=== PATIENT | male | born 1945 | race Caucasian/White ===

== ENCOUNTER → 2018-11-24 06:21 | Outpatient (CLI) | payer MEDICARE, SELFPAY ==
--- NOTE | 2018-11-24 06:33 | ECHOCS_ITS ---
Reason For Study: Abn EKG Procedure This was a 2D Doppler, Color Flow transthoracic echocardiogram. The study was technically difficult. Contrast injection was performed. Exam performed in department. Left Ventricle Normal LV size. Left ventricular systolic function is normal. The estimated ejection fraction is 65 %. Stage 1 diastolic dysfunction. No regional wall motion abnormalities noted. Right Ventricle Normal RV size. Normal systolic function. Atria Normal left atrium. Normal right atrium. Mitral Valve Normal mitral valve. Tricuspid Valve Normal tricuspid valve. Aortic Valve Trisinus/trileaflet aortic valve. Mild focal aortic valve calcification. Pulmonic Valve Normal pulmonic valve. Great Vessels Normal aortic root. The pulmonary artery is normal size. Normal inferior vena cava. Pericardium/Pleural No pericardial effusion. Medication Definity0.2ml given slow IV push to enhance endocardial definition. MMode/2D Measurements & Calculations LVIDd: 5.0 cm IVSd: 0.86 cm Ao root diam: 3.7 cm LVIDs: 2.9 cm LVPWd: 1.0 cm FS: 42.9 % LAV(MOD-bp): 36.5 ml LVAd ap4: 26.9 cm2 SV(MOD-sp4): 61.4 ml LAV(MOD-bp) Indexed: 14.7 ml/m2 EDV(MOD-sp4): 75.5 ml LAV(MOD-sp2): 34.0 ml EDV(sp4-el): 79.7 ml LAV(MOD-sp4): 37.7 ml LVAs ap4: 10.5 cm2 ESV(MOD-sp4): 14.1 ml ESV(sp4-el): 14.8 ml EF(MOD-sp4): 81.3 % EF(sp4-el): 81.4 % SV(sp4-el): 64.9 ml LA A4 area: 14.7 cm2 LA dimension(2D): 4.6 cm RA A4 area: 5.4 cm2 Doppler Measurements & Calculations MV E max duncan: 80.2 cm/sec Lat Peak E' Duncan: 9.0 cm/sec Med Peak E' Duncan: 7.4 cm/sec MV A max duncan: 128.7 cm/sec E/E' lat: 8.9 E/E' med: 10.9 MV E/A: 0.62 Ao V2 max: 165.6 cm/sec LV V1 max: 121.6 cm/sec PA V2 max: 105.9 cm/sec Ao max P.0 mmHg LV V1 max P.9 mmHg Ao V2 mean: 100.1 cm/sec Ao mean P.7 mmHg Ao V2 VTI: 26.1 cm Interpretation Summary Normal LV size. Left ventricular systolic function is normal. The estimated ejection fraction is 65 %. Stage 1 diastolic dysfunction. Contrast injection was performed. Ordering Physician: REGGIE Downing Referring Physician: REGGIE Downing Performed By: Florence Nagel RDCS, RVT
--- NOTE | 2018-11-24 11:46 | STRESSREP ---
Stress Test Report Pharmacologic myocardial perfusion stress test. 73-year-old man with a history of abnormal EKG. Stress protocol: Resting EKG demonstrates normal sinus rhythm with a rate of 102 bpm resting blood pressure is 170/[address] depression noted in lead I and aVL noted. 0.4 mg of regadenoson was infused per usual protocol followed by rapid intravenous saline flush injection continuous EKG monitoring was performed. The maximum heart rate attained was 122 bpm which was 81% of maximum predicted heart rate the maximum workload was 1 metabolic equivalent. At rest there were no ST or T wave changes noted suggest abnormal flow reserve at peak infusion nonspecific ST-T wave changes were noted T wave inversions in 1 and aVL persisted. The resting blood pressure was 170/94 mmHg with a final blood pressure 160/84 mmHg. Myocardial perfusion protocol. 14.9 mCi of technetium 99m sestamibi was injected at rest. 0.4 mg of regadenoson was infused per usual protocol peak infusion 44.9 mCi of technetium 99m sestamibi was injected stress images were obtained stress and rest images were reconstructed and compared in the short axis vertical long horizontal long axis. Gated images were also obtained per Perfusion SPECT analysis: Review of the stress images demonstrate mildly reduced perfusion in the mid anterior wall as well as the mid lateral wall. The resting images demonstrate improvement suggesting mid anterior and lateral ischemia. No previous infarct is noted. Gated SPECT analysis: The gated ejection fraction is noted to be 46% with segmental wall motion abnormalities present. Conclusion: Abnormal myocardial perfusion stress test with evidence of anterolateral ischemia noted.
== END ==
PROVIDERS: Family Provider Nurse Practitioner Family; PCP Nurse Practitioner Family; Referring Provider Nurse Practitioner Family; Visit Provider Nurse Practitioner Family
DX: R94.31 Abnormal electrocardiogram [ECG] [EKG] (principal)
CPT/HCPCS: 78452; 93017; 93306; A9500; Q9957; A4216; C8929; J2785